=== PATIENT | female | born 1980 ===

== ENCOUNTER 2018-01-12 18:54 | Emergency (ER) | payer OTHER ==
[~2018-01-12 18:54] MED LIST: TRAMADOL50 MG PO
--- NOTE | 2018-01-12 19:15 | ED GI/GU/ABDOMINAL COMPLAINT ---
History of Present Illness General Chief Complaint: Abdominal Pain/Flank Pain Stated Complaint: SIB UC DISTENDED ABD PAIN X 1 WEEK Source: patient Exam Limitations: no limitations Vital Signs & Intake/Output Vital Signs & Intake/Output Vital Signs Date Time Temp Pulse Resp B/P B/P Pulse O2 O2 Flow FiO2 Mean Ox Delivery Rate 01/12 2245 98.0 80 20 132/72 98 Room Air 01/12 1908 96.3 108 18 136/93 100 Room Air Allergies Coded Allergies: Penicillins (HIVES 01/12/18) Reconcile Medications Magnesium Citrate 296 ML SOLUTION 296 ML PO ONCE PRN CONSTIPATION Triage Note: PT DISTENTION. HX SIGMOID VOLVULUS IN 2013, WENT TO [facility]ALK [facility] AND HAD FLAT PLATE IMAGE DONE SHOWING BOWEL STRANGULATION, PT ARRIVES WITH CD AND PAPERWORK FROM [facility]. Triage Nurses Notes Reviewed? yes ? N Is pt currently ? No Onset: Gradual Duration: getting worse Quality/Severity: fullness, moderate Severity Numbers: 5 Location: generalized abdomen HPI: Patient is a 37-year-old female with a past medical history of significant GI issues most notably cyclical constipation syndrome HOWEVER in 2013 patient had sigmoid volvulus where Dr. Mcdonald performed colectomy patient presents emergency room for a one-week history of mild abdominal distention abdominal cramping of her abdominal pain worsened today patient last bowel movement was yesterday no blood no melena Patient is able tolerate by mouth however decreased by mouth intake Denies any fever chills back pain dysuria hematuria vaginal bleeding or discharge. Patient was evaluated in urgent care facility urine was negative x-ray was obtained patient was advised to presents emergency room. (Nacho Rizzo) Past History Travel History Traveled to [place] past 21 day No Medical History Any Pertinent Medical History? 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 No (Nacho Rizzo) Review of Systems Review of Systems Constitutional: Reports: no symptoms. EENTM: Reports: no symptoms. Respiratory: Reports: no symptoms. Cardiovascular: Reports: no symptoms. GI: Reports: see HPI, abdominal pain. Genitourinary: Reports: no symptoms. Musculoskeletal: Reports: no symptoms. Skin: Reports: no symptoms. Neurological/Psychological: Reports: no symptoms. Hematologic/Endocrine: Reports: no symptoms. Immunologic/Allergic: Reports: no symptoms. All Other Systems: Reviewed and Negative (Nacho Rizzo) Physical Exam Physical Exam General Appearance: no apparent distress, comfortable Head: atraumatic Eyes: Bilateral: normal appearance. Ears, Nose, Throat, Mouth: moist mucous membrane Neck: normal inspection Respiratory: no respiratory distress Cardiovascular: regular rate/rhythm Gastrointestinal: distention, tenderness Extremities: normal range of motion Neurologic/Psych: no motor/sensory deficits, awake Skin: intact, normal color Core Measures ACS in differential dx? No Sepsis Present: No Sepsis Focused Exam Completed? No (Nacho Rizzo) Progress Differential Diagnosis: AAA, AMI, appendicitis, biliary colic, bowel obstruction , colon cancer, cholecystitis, diverticulitis, ectopic , endometritis, esophageal varices, gastritis, hepatitis, hernia, hemorrhoids, ischemic bowel, inflamm bowel dis, intrauterine , kidney stone, Sarah-Kishan tear, ovarian cyst, ovarian torsion, pancreatitis, PID/cervicitis, peptic ulcer, PUD/ GERD, perforated viscous, SBO, threatened AB, UTI/pyelo Plan of Care: Orders Procedure Date/time Status LACTIC ACID 01/12 1918 Complete HUMAN BETA HCG SCREEN 01/12 1918 Complete COMPREHENSIVE METABOLIC PANEL 01/12 1918 Complete CBC WITHOUT DIFFERENTIAL 01/12 1918 Complete Laboratory Tests 01/12/18 2218: Lactic Acid Cancelled 01/12/18 2011: Anion Gap 9, Estimated GFR > 60, BUN/Creatinine Ratio 15.0, Glucose 105 H, Lactic Acid 0.8, Calcium 9.6, Total Bilirubin 0.3, AST 22, ALT 38, Alkaline Phosphatase 44, Total Protein 8.0, Albumin 4.7, Globulin 3.3, Albumin/Globulin Ratio 1.4, Total Beta HCG NEGATIVE, CBC w Diff NO MAN DIFF REQ, RBC 4.23, MCV 90.6, MCH 31.4 H, MCHC 34.6, RDW 12.6, MPV 6.9 L, Gran % 64.9, Lymphocytes % 23.9, Monocytes % 9.1, Eosinophils % 1.8, Basophils % 0.3, Absolute Granulocytes 3.8, Absolute Lymphocytes 1.4, Absolute Monocytes 0.5, Absolute Eosinophils 0.1, Absolute Basophils 0 Initial presentation patient is resting comfortably bedside she was offered pain medications and declines 2151 patient still resting comfortably bedside denies any pain medication when offered states "I am just hungry" CT scan was resulted showing marketed distended colon 2219 Dr. Mcdonald was paged 8 I discussed patient with Dr. Mcdonald who advised patient to begin stool softener and bowel promotion medications and follow up in office tomorrow Only advised to begin her bowel promotion medication at home She was given a prescription of magnesium citrate and was advised to begin stool softener She will follow-up tomorrow with Dr. Mcdonald Discussed disposition plan with patient who agrees and has no questions Diagnostic Imaging: Viewed by Me: CT Scan. Radiology Impression: acute abnormality Initial ED EKG: none Comments: PATIENT: DYLAN ROSENBERG PRESENT AGE: 37 PATIENT ACCOUNT NO: [id number] : 80 LOCATION: [facility] ORDERING PHYSICIAN: Nacho DOUGLAS SERVICE DATE: 01/12/18 EXAM TYPE: CAT - CT ABD & PELVIS W IV CONTRAST EXAMINATION: CT ABDOMEN AND PELVIS WITH CONTRAST CLINICAL INFORMATION: Abdominal pain with history of sigmoid volvulus. COMPARISON: CT 06/18/[address] 07/20/2013. TECHNIQUE: Multidetector volumetric imaging was performed of the abdomen and pelvis following IV administration of 95 mL of Optiray 320 intravenous contrast. Sagittal and coronal reformatted images were obtained on the technologist's workstation. DLP: 264.46 mGy-cm FINDINGS: LUNG BASES: The visualized lung bases are unremarkable. LIVER, GALLBLADDER, AND BILIARY TREE: The liver is normal in size, shape, and attenuation. No focal hepatic lesion or biliary ductal dilatation is present. The gallbladder is unremarkable with no evidence of radiopaque gallstones, gallbladder wall thickening, or obvious pericholecystic inflammatory changes. PANCREAS: Unremarkable. SPLEEN: Unremarkable. ADRENAL GLANDS: Unremarkable. KIDNEYS AND URETERS: The kidneys are normal in size, shape, and attenuation. No hydronephrosis, hydroureter, or calculi seen. No perinephric stranding. BLADDER: Unremarkable. GASTROINTESTINAL TRACT: Once again seen is a hugely distended colon which begins at the level of what appears to be a rectosigmoid anastomosis. Only a short amount of rectum is seen distal to this but proximal to this the colon is markedly dilated with some loops measuring almost 13 cm in diameter. The cecum and right colon are filled with stool and not markedly dilated. There is no evidence of a sigmoid volvulus at this time. No small bowel dilatation or obstruction is seen. Similar findings were present in the 2015 study but the colon appears significantly more distended. No free air is seen. No pneumatosis is seen. The stomach is markedly compressed by the dilated colon. ABDOMINAL WALL: No significant hernia is appreciated. LYMPH NODES: Normal. VASCULAR: Unremarkable. PELVIC VISCERA: An anteverted uterus is present. There is fluid in the endometrial canal near the fundus. An abnormal adnexal mass is not seen. OSSEOUS STRUCTURES: Once again noted are bilateral pars defects at L5 without spondylolisthesis. IMPRESSION: Markedly dilated colon, worse than was noted in 2015, which begins at the surgical anastomosis at the rectal junction. There is no evidence of a volvulus at this time. 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 Tomorrow please follow-up with your establish colorectal surgeon Dr. Mcdonald. If symptoms worsen return to emergency room prescriptions waiting at [facility]. Departure Forms: Customer Survey General Discharge Information Prescriptions: Current Visit Scripts Magnesium Citrate 296 ML PO ONCE PRN CONSTIPATION #296 ML (Nacho Rizzo) PA/FAST FOOD ASSISTANT RESTAURANT MANAGER Co-Sign Statement Statement: ED Attending supervision documentation- I saw and evaluated the patient. I have also reviewed all the pertinent lab results and diagnostic results. I agree with the findings and the plan of care as documented in the PA's/FAST FOOD ASSISTANT RESTAURANT MANAGER's documentation. x I have reviewed the ED Record and agree with the PA's/FAST FOOD ASSISTANT RESTAURANT MANAGER's documentation. [] Additions or exceptions (if any) to the PAs/FAST FOOD ASSISTANT RESTAURANT MANAGER's note and plan are summarized below: [] (Arely CEDILLO,Clem)
[2018-01-12 20:24] LABS: ABSOLUTE BASOPHIL COUNT 0 /CUMM (0.0-0.2); ABSOLUTE EOSINOPHIL COUNT 0.1 /CUMM (0.0-0.7); ABSOLUTE GRANULOCYTE CT 3.8 /CUMM (1.4-6.5); ABSOLUTE LYMPH COUNT 1.4 /CUMM (1.2-3.4); ABSOLUTE MONOCYTE COUNT 0.5 /CUMM (0.10-0.60); BASOPHIL % 0.3 % (0.0-2.0); EOSINOPHIL % 1.8 % (0-5); GRANULOCYTE % 64.9 % (42.2-75.2); HEMATOCRIT 38.4 % (37-47); MEAN CORPUSCULAR HGB 31.4 PG (27.0-31.0); MEAN CORPUSCULAR HGB CONC 34.6 G/DL (33.0-37.0); MEAN CORPUSCULAR VOLUME 90.6 FL (81.0-99.0); MEAN PLATELET VOLUME 6.9 FL (7.4-10.4); PLATELET COUNT 282 /CUMM (130-400); RBC DISTRIBUTION WIDTH 12.6 % (11.5-14.5); RED BLOOD CELL CT 4.23 /CUMM (4.20-5.40); WHITE BLOOD CELL COUNT 5.9 /CUMM (4.8-10.8)
--- NOTE | 2018-01-12 22:11 | CT SCAN REPORT ---
EXAMINATION: CT ABDOMEN AND PELVIS WITH CONTRAST CLINICAL INFORMATION: Abdominal pain with history of sigmoid volvulus. COMPARISON: CT 06/18/[address] 07/20/2013. TECHNIQUE: Multidetector volumetric imaging was performed of the abdomen and pelvis following IV administration of 95 mL of Optiray 320 intravenous contrast. Sagittal and coronal reformatted images were obtained on the technologist's workstation. DLP: 264.46 mGy-cm FINDINGS: LUNG BASES: The visualized lung bases are unremarkable. LIVER, GALLBLADDER, AND BILIARY TREE: The liver is normal in size, shape, and attenuation. No focal hepatic lesion or biliary ductal dilatation is present. The gallbladder is unremarkable with no evidence of radiopaque gallstones, gallbladder wall thickening, or obvious pericholecystic inflammatory changes. PANCREAS: Unremarkable. SPLEEN: Unremarkable. ADRENAL GLANDS: Unremarkable. KIDNEYS AND URETERS: The kidneys are normal in size, shape, and attenuation. No hydronephrosis, hydroureter, or calculi seen. No perinephric stranding. BLADDER: Unremarkable. GASTROINTESTINAL TRACT: Once again seen is a hugely distended colon which begins at the level of what appears to be a rectosigmoid anastomosis. Only a short amount of rectum is seen distal to this but proximal to this the colon is markedly dilated with some loops measuring almost 13 cm in diameter. The cecum and right colon are filled with stool and not markedly dilated. There is no evidence of a sigmoid volvulus at this time. No small bowel dilatation or obstruction is seen. Similar findings were present in the 2014 study but the colon appears significantly more distended. No free air is seen. No pneumatosis is seen. The stomach is markedly compressed by the dilated colon. ABDOMINAL WALL: No significant hernia is appreciated. LYMPH NODES: Normal. VASCULAR: Unremarkable. PELVIC VISCERA: An anteverted uterus is present. There is fluid in the endometrial canal near the fundus. An abnormal adnexal mass is not seen. OSSEOUS STRUCTURES: Once again noted are bilateral pars defects at L5 without spondylolisthesis. IMPRESSION: Markedly dilated colon, worse than was noted in 2015, which begins at the surgical anastomosis at the rectal junction. There is no evidence of a volvulus at this time.
[2018-01-12] MEDS ORDERED: MAGNESIUM CITR296 ML PO (22:30)
[2018-01-12 22:45] VITALS: BP 132/72
== END 2018-01-12 22:46 ==
LOC: ERH 18:54
PROVIDERS: Physician Assistant
DX: K59.00 Constipation, unspecified (principal)
CPT/HCPCS: 74177